=== PATIENT | male | born 1985 | race Caucasian/White ===

== ENCOUNTER 2022-12-27 17:32 | Emergency (ER) | payer SELFPAY ==
[~2022-12-27] VITALS: Ht 182.9 cm; Wt 81.6 kg
[2022-12-27 17:54] VITALS: BP 126/73; PULSE 90; RESP 20; TEMP 99.3; O2SAT 100
[2022-12-27] MEDS ORDERED: ONDANSETRON 4 MG/2 ML VIAL IVP ONE (19:35)
[2022-12-27] MEDS ORDERED: NACL 0.9% 1,000 ML IV ONE (19:50)
[2022-12-27 20:10] LABS: BASOPHILS # (AUTO) 0.1 K/uL (0.00-0.22); BASOPHILS % (AUTO) 0.5 % (0.0-2.0); EOSINOPHILS # (AUTO) 0.1 K/uL (0-0.4); EOSINOPHILS % (AUTO) 0.4 % (0.0-4.0); HEMATOCRIT 44.1 % (36-52); HEMOGLOBIN 14.6 g/dL (12.0-18.0); LYMPHOCYTES # (AUTO) 2.8 K/uL (2.0-11.5); LYMPHOCYTES % (AUTO) 17.8 % (20.5-51.1); MEAN CORPUSCULAR HEMOGLOBIN 31 pg (27-31); MEAN CORPUSCULAR HGB CONC 33 g/dL (33-37); MEAN CORPUSCULAR VOLUME 92.6 fL (80-94); MONOCYTES # (AUTO) 1.6 K/uL (0.8-1.0); MONOCYTES % (AUTO) 9.9 % (1.7-9.3); NEUTROPHILS # (AUTO) 11.3 K/uL (1.8-7.7); NEUTROPHILS % (AUTO) 71.4 % (42.2-75.2); PLATELET COUNT (AUTO) 284 K/uL (140-450); RED BLOOD CELL COUNT(AUTO) 4.76 MIL/uL (4.20-6.10); RED CELL DISTRIBUTION WIDTH 12.8 % (11.6-13.7); WHITE BLOOD COUNT (AUTO) 15.8 K/uL (4.8-10.8)
[2022-12-27 20:25] LABS: ALBUMIN 3.6 g/dL (3.4-5.0); ANION GAP 11.4 (8-16); CALCIUM 8.8 mg/dL (8.5-10.1); CARBON DIOXIDE 26.4 mmol/L (21-32); CREATININE 0.9 mg/dL (0.6-1.3); POTASSIUM 3.8 mmol/L (3.5-5.1); TOTAL BILIRUBIN 0.6 mg/dL (0.0-1.0); TOTAL PROTEIN, SERUM 7.1 g/dL (6.4-8.2)
[2022-12-27] MEDS ORDERED: HYDROcodone/APAP 5/325 MG 1 TAB TAB PO ONE (20:55)
[2022-12-27] MEDS ORDERED: cefTRIAXone 1,000 MG VIAL ONE (21:22)
[2022-12-28] MEDS ORDERED: AMOX1TAB8 PO (00:48)
[2022-12-28] MEDS ORDERED: NAPR-54 PO (00:48)
[2022-12-28] MEDS ORDERED: ACET-8905 PO (00:48)
== END 2022-12-28 01:00 | disposition home or self-care (01) ==
LOC: MED 17:32
DX: K04.7 Periapical abscess without sinus (principal); Z79.82 Long term (current) use of aspirin; Z79.899 Other long term (current) drug therapy
CPT/HCPCS: 36415; 70486; 80053; 85025; 96361; 96365; 96375; 99285; J0696; J2405; J7030

== ENCOUNTER 2023-06-16 12:43 | Emergency (ER) | payer SELFPAY ==
[~2023-06-16] VITALS: Ht 180.3 cm; Wt 79.0 kg
[~2023-06-16 12:43] MED LIST: ACET-8905 PO; AMOX1TAB8 PO; NAPR-337 PO
[2023-06-16 13:08] VITALS: BP 121/76; PULSE 109; RESP 19; TEMP 99.3; O2SAT 98
[2023-06-16] MEDS ORDERED: IBUP-2213 PO (14:05)
[2023-06-16] MEDS ORDERED: CIPR750T5 PO (14:05)
[2023-06-16] MEDS: IBUPROFEN 600 MG TAB PO ONE (14:08)
== END 2023-06-16 14:17 | disposition home or self-care (01) ==
LOC: MED 12:43
DX: H61.002 Unspecified perichondritis of left external ear (principal); Z79.899 Other long term (current) drug therapy
CPT/HCPCS: 99283